=== PATIENT | female | born 1980 | race African-American/Black ===

== ENCOUNTER 2016-06-16 11:16 | Observation (INO) | payer MEDICAID, OTHER ==
[~2016-06-16] VITALS: Ht 154.9 cm; Wt 84.4 kg
[~2016-06-16 11:16] MED LIST: FERR-89 PO; PNV1TAB.3 PO; QUET200T PO; TRAZ150 PO; ZOLP10 PO
[2016-06-16 12:44] VITALS: BP 100/62
[2016-06-16 14:40] LABS: GLUCOSE, URINE (UA) NEGATIVE (NEGATIVE); KETONES,URINE NEGATIVE (NEGATIVE); LEUKOCYTE ESTERASE ,URINE LARGE (NEGATIVE); OCCULT BLOOD,URINE NEGATIVE (NEGATIVE); PROTEIN,URINE NEGATIVE (NEGATIVE)
[2016-06-16 14:49] LABS: ADD UA MICROSCOPIC YES; APPEARANCE,URINE HAZY (CLEAR)
[2016-06-16 14:54] LABS: RBC,URINE None Seen /HPF (0-2); SQUAMOUS EPITHELIAL CELL,UR Moderate /LPF (None Seen)
[2016-06-16 14:56] LABS: URINALYSIS COMMENT Rare Trich. seen.
== END 2016-06-16 13:55 | disposition home or self-care (01) ==
LOC: EMS 11:25 → 4S 11:40 → INTOOBSV 11:40
PROVIDERS: ADMIT Obstetrics & Gynecology; ATTEND Obstetrics & Gynecology
DX: O9A.212 Injury, poisoning and certain other consequences of external causes complicating pregnancy, second trimester (principal); O99.342 Other mental disorders complicating pregnancy, second trimester; F31.9 Bipolar disorder, unspecified; F41.9 Anxiety disorder, unspecified; Z3A.20 20 weeks gestation of pregnancy; X58.XXXA Exposure to other specified factors, initial encounter; Y93.89 Activity, other specified; Y92.89 Other specified places as the place of occurrence of the external cause; Y99.8 Other external cause status
CPT/HCPCS: 59025; 76805; 80307; 81001; 87086; 99285; G0378

== ENCOUNTER 2017-08-03 14:08 | Emergency (ER) | payer OTHER ==
[~2017-08-03] VITALS: Ht 152.4 cm; Wt 89.1 kg
[~2017-08-03 14:08] MED LIST changes: -ZOLP10 PO; +ZOLP10TA7 PO
[2017-08-03] MEDS ORDERED: OXYC-38 PO (14:20)
[2017-08-03] MEDS ORDERED: KETOROLAC TROMETHAMINE 60 MG/2 ML VIAL IM ONE (17:15)
[2017-08-03] MEDS ORDERED: METHOCARBAMOL 500 MG TABLET PO ONE (17:15)
[2017-08-03 17:22] VITALS: BP 122/80
== END 2017-08-03 17:32 | disposition home or self-care (01) ==
LOC: EMS 14:10
DX: M54.5 Low back pain (principal); F41.9 Anxiety disorder, unspecified; F32.9 Major depressive disorder, single episode, unspecified; Z79.899 Other long term (current) drug therapy
CPT/HCPCS: 96372; 99283; J1885

== ENCOUNTER 2017-12-26 19:45 | Emergency (ER) | payer OTHER ==
[~2017-12-26] VITALS: Ht 152.4 cm; Wt 90.9 kg
[~2017-12-26 19:45] MED LIST changes: -FERR-89 PO; +OXYC-38 PO; -PNV1TAB.3 PO; -QUET200T PO; -ZOLP10TA7 PO
[2017-12-26] MEDS ORDERED: QUET300T2 PO (19:53)
[2017-12-26] MEDS: KETOROLAC TROMETHAMINE 60 MG/2 ML VIAL IM ONE (20:26)
[2017-12-26] MEDS: METHOCARBAMOL 500 MG TABLET PO ONE (20:26)
[2017-12-26 21:29] VITALS: BP 115/62
== END 2017-12-26 21:29 | disposition home or self-care (01) ==
LOC: EMS 19:46
DX: M54.5 Low back pain (principal); G89.29 Other chronic pain; F41.9 Anxiety disorder, unspecified; F31.9 Bipolar disorder, unspecified; G47.00 Insomnia, unspecified; Z98.890 Other specified postprocedural states; Z79.899 Other long term (current) drug therapy
CPT/HCPCS: 81002; 96372; 99283; J1885